=== PATIENT | female | born 1975 | race Caucasian/White ===

== ENCOUNTER 2024-04-28 20:03 | Emergency (ER) | payer BC, SELFPAY ==
[2024-04-28 20:09] VITALS: BP 155/99; PULSE 119; RESP 22; TEMP 36.9; O2SAT 93; BMI 31.8
[2024-04-28 21:23] VITALS: BP 144/96; PULSE 86; RESP 17; TEMP 36.8; O2SAT 97
--- NOTE | 2024-04-28 21:51 | PC.NURSE ---
this rn called poison control at this time. Mike at poison control reports at this time he is going to reach out to his [employer] former supervisor for further information. at this time Mike states pt may experience hypertension.
--- NOTE | 2024-04-28 21:55 | PC.NURSE ---
this rn assumed care of pt, pt a&ox4, respirations even and unlabored. pt reporting around 1am this morning she accidentally took about 60Ml of minoxidil 5% in biotin thinking it was cbd oil. pt now reports she is experiencing nausea, vomiting diarrhea and a headache. pt denies chest pain at this time. at bedside to assess pt.
--- NOTE | 2024-04-28 22:01 | ECG_ITS ---
Test Reason : ABD PAIN Blood Pressure : / mmHG Vent. Rate : 073 BPM Atrial Rate : 073 BPM P-R Int : 152 ms QRS Dur : 078 ms QT Int : 378 ms P-R-T Axes : 067 057 055 degrees QTc Int : 416 ms Normal sinus rhythm with sinus arrhythmia Normal ECG No previous ECGs available Referred By: Lacho Thomposn Electronically Signed By:ANA GRAJEDA
--- NOTE | 2024-04-28 22:03 | ED_ITS ---
HPI - General Adult General Chief complaint: Abdominal Pain Stated complaint: accidental poison use Time Seen by Provider: 04/28/24 21:53 History of Present Illness ED Provider: Donna STEIN narrative: The patient is a 48-year-old female who says that at about 01:45 AM this morning she took 2 dropperfuls of what she thought was CBD oil but which turned out to be minoxidil. She says that she woke up this morning at around 05:30 feeling unwell. She had diarrhea. She has a headache. She would nausea. During the day today she has had a persistent headache associated with nausea, vomiting and diarrhea and mild abdominal discomfort. She generally has felt unwell all day. She has taken Excedrin and acetaminophen without improvement of her headache. Related Data Allergies Allergy/AdvReac Type Severity Reaction Status Date / Time latex AdvReac Unknown Verified 04/28/24 20:14 tioconazole AdvReac Redness of Verified 04/28/24 20:14 [From Monistat 1 Skin (tioconazole)] Review of Systems 2 Review of Systems: Yes all other systems are reviewed and are negative [facility] Social History Social History Smoked in Last 30 Days: No Use of substances other than those prescribed or required for medical reasons: No Advance Directives: No Advance Directives Information Provided: No Do you have a plan to hurt others: No Plan Patient : No Physical Exam ED Vital Signs: Vital Signs - 24 hr 04/28/24 20:09 04/28/24 21:23 04/28/24 22:15 Temperature 98.5 F 98.2 F 98.1 F Pulse Rate 119 H 86 72 Respiratory Rate 22 H 17 17 Blood Pressure 155/99 H 144/96 H 124/85 Pulse Oximetry 93 97 97 Oxygen Delivery Method Room Air Room Air Room Air 04/28/24 23:56 04/29/24 05:48 04/29/24 06:10 Temperature 98.4 F 98.6 F 98.6 F Pulse Rate 75 89 89 Respiratory Rate 18 17 17 Blood Pressure 124/81 123/79 123/79 Pulse Oximetry 100 99 99 Oxygen Delivery Method Room Air Room Air Room Air BMI result Body Mass Index 31.8 Const Other: The patient is awake and alert. She looks mildly unwell but not acutely toxic. HENMT Other: Face is symmetrical. Mucous membranes moist. Pharynx is normal. Eyes Other: Pupils are round, equal, and reactive to light. Extraocular movements are intact. Conjunctivae are clear. Neck Other: The patient can touch her chin to her chest easily. Resp Effort & Inspection: normal respiratory effort Auscultation: clear to auscultation bilaterally Cardio Rate: regular rate Rhythm: regular rhythm Heart sounds: S1 normal heart sound present and S2 normal heart sound present GI Other: Abdomen is soft and nontender Skin Other: Skin is dry and unremarkable Neuro Other: The patient is awake and alert with a normal mental status. She has a somewhat anxious demeanor. Cranial nerves 2-12 are intact. Her neck is supple. She moves her extremities normally and appropriately. She seems neurologically intact. Extrem Other: No peripheral edema. No calf swelling or tenderness. Medications Administered Discontinued Medications Generic Name Dose Route Start Last Admin Trade Name Freq PRN Reason Stop Dose Admin Sodium Chloride 1,000 mls @ 999 mls/hr 04/28/24 22:15 04/29/24 01:30 Ns IV 04/28/24 23:15 Infused .Q1H1M RADU Infusion Ketorolac Tromethamine 10 mg 04/29/24 00:38 04/29/24 01:29 Ketorolac Tromethamine 15 Mg/Ml Vial IVPUSH 04/29/24 00:39 10 mg ONCE ONE Administration Ondansetron HCl 4 mg 04/28/24 22:23 04/28/24 22:37 Ondansetron Hcl 4 Mg/2 Ml Vial IVPUSH 04/28/24 22:24 4 mg ONCE ONE Administration Medical Decision Making Medical Decision Making [facility] Narrative: The patient is a 48-year-old female presents complaining of feeling unwell after accidentally taking minoxidil orally (she thought she was taking CBD oil). The poison Center was consulted. They recommended observation for about 8 hours. The patient was observed and did not develop any hypotension of significance. She was symptomatically treated with ketorolac and ondansetron and IV fluids. She felt much better by the morning and seemed appropriate for discharge. Lab Data 04/28/24 22:10 04/28/24 22:10 Labs: Lab Results 04/28/24 04/28/24 04/29/24 Range/Units 22:10 22:11 01:25 WBC 12.1 H (4.8-10.8) X10*3/uL RBC 4.59 (4.20-5.50) X10*6/uL Hgb 15.4 (12.0-16.0) g/dl Hct 42.7 (37.0-47.0) % MCV 93.0 (80.0-98.0) fL MCH 33.6 H (27.0-33.0) pg MCHC 36.1 H (31.0-35.0) g/dl RDW 12.3 (11.0-16.0) % Plt Count 292 (160-400) X10*3/uL MPV 9.5 (9.4-12.3) fL Immature Gran % (Auto) 0.4 (0.0-0.4) % Neut % (Auto) 65.6 (45-73) % Lymph % (Auto) 25.2 (20-40) % Caroline % (Auto) 7.7 (2-11) % Eos % (Auto) 0.7 (0-4) % Baso % (Auto) 0.4 (0-2) % Lymph # (Auto) 3.0 (1.2-4.9) X10*3/uL Caroline # (Auto) 0.9 (0.1-1.2) X10*3/uL Eos # (Auto) 0.1 (0.0-0.4) X10*3/uL Baso # (Auto) 0.1 (0.0-0.2) X10*3/uL Abs Immat Gran (auto) 0.05 H (0.00-0.03) X10*3/uL Absolute Neuts (auto) 7.9 (2.0-8.3) x10*3/uL Absolute Nucleated RBC 0.000 (0.0-0.012) X10*3/uL Nucleated RBC % (auto) 0.0 (0.0-0.2) /100WBC VBG pH 7.44 H (7.32-7.43) VBG pCO2 34 mmHg VBG pO2 47 mmHg VBG HCO3 24 (22-26) mmol/L VBG O2 Saturation 79.0 % VBG Base Excess 0.7 mmol/L Sodium 139 (135-145) mmol/L Potassium 3.8 (3.3-5.1) mmol/L Chloride 106 (96-108) mmol/L Carbon Dioxide 23 (22-29) mmol/L Anion Gap 14 (12-20) BUN 13 (9-16) mg/dL Creatinine 0.78 (0.5-1.4) mg/dL Estim Creat Clear Calc 76.7 Estimated GFR > 60 Random Glucose 101 (60-115) mg/dL Calcium 9.9 (8.4-10.2) mg/dL Magnesium 2.0 (1.6-2.6) mg/dL Total Bilirubin 0.9 (0.0-1.0) mg/dL Direct Bilirubin 0.2 (0.0-0.5) mg/dL AST 18 (5-31) U/L ALT 23 (0-31) U/L Alkaline Phosphatase 62 (39-117) U/L Total Protein 7.6 (6.5-8.0) g/dL Albumin 4.5 (3.5-5.0) g/dL Lipase 18 (8-78) U/L Beta HCG, Quant < 2 mIU/mL Urine Color Yellow Urine Appearance Clear Urine pH 6.5 (5.0-9.0) Ur Specific [place] 1.010 (1.005-1.025) Urine Protein Negative (Neg-Trace) mg/dL Urine Glucose (UA) Negative (Negative) mg/dL Urine Ketones Negative (Negative) mg/dL Urine Blood Negative (Negative) Urine Nitrite Negative (Negative) Ur Leukocyte Esterase Negative (Negative) Salicylates < 5.0 L (15-30) mg/dL Urine Opiates Screen Not Detected (Not Detect) Ur Buprenorphine Scrn Not Detected (Not Detect) ng/mL Ur Oxycodone Screen Not Detected (Not Detect) ng/mL Urine Methadone Screen Not Detected (Not Detect) ng/mL Urine Fentanyl Screen Not Detected (Not Detect) Acetaminophen < 3 (<30) mcg/mL Ur Barbiturates Screen Not Detected (Not Detect) Ur Phencyclidine Scrn Not Detected (Not Detect) Ur Amphetamines Screen Not Detected (Not Detect) U Benzodiazepines Scrn Not Detected (Not Detect) Urine Cocaine Screen Not Detected (Not Detect) U Marijuana (THC) Screen POSITIVE H (Not Detect) Ethyl Alcohol < 10 mg/dL Discharge Plan Discharge Clinical Impression: Accidental drug ingestion Patient Disposition: Home, Self-Care Additional Instructions: Please rest and take it easy today. Drink lot of fluids. Please contact your regular primary care provider if you have any ongoing concerns. Return to the emergency room if you feel significantly worse. Referrals: Tessa Holland NP [Nurse Practitioner] - (accidental ingestion) Interventions: ED Discharge Assessment Last Done: 04/29/24 06:10 Discharge Date/Time: 04/29/24 06:10 Print Language: Croatian
--- NOTE | 2024-04-28 22:11 | PC.NURSE ---
per Mike in poison control, pt may experience hypotension rather than hypertension. Mike states that pt should have a watch over night until 7am due to possibility of hypotensive episodes within 24 hours.
[2024-04-28] MEDS: 0.9 % Sodium Chloride 1,000 ML 999 ML IV (22:13)
[2024-04-28 22:14] LABS: MANUAL DIFF FLAG NO
[2024-04-28 22:15] VITALS: BP 124/85; PULSE 72; RESP 17; TEMP 36.7; O2SAT 97
[2024-04-28 22:16] LABS: Basophils Absolute Auto 0.1 X10*3/uL (0.0-0.2); Basophils Percent Auto 0.4 % (0-2); Eosinophils Absolute Auto 0.1 X10*3/uL (0.0-0.4); Eosinophils Percent Auto 0.7 % (0-4); Hematocrit 42.7 % (37.0-47.0); Hemoglobin 15.4 g/dl (12.0-16.0); Imm Gran Abs Auto 0.05 X10*3/uL (0.00-0.03); Imm Gran Pct Auto 0.4 % (0.0-0.4); Lymphocytes Percent Auto 25.2 % (20-40); Mean Corpuscular HGB Conc 36.1 g/dl (31.0-35.0); Mean Corpuscular Hemoglobin 33.6 pg (27.0-33.0); Mean Platelet Volume 9.5 fL (9.4-12.3); Monocytes Absolute Auto 0.9 X10*3/uL (0.1-1.2); Monocytes Percent Auto 7.7 % (2-11); Neutrophils Absolute Auto 7.9 x10*3/uL (2.0-8.3); Neutrophils Percent Auto 65.6 % (45-73); Platelet Count 292 X10*3/uL (160-400); Red Blood Count 4.59 X10*6/uL (4.20-5.50); Red Cell Distribution Width 12.3 % (11.0-16.0); White Blood Count 12.1 X10*3/uL (4.8-10.8)
[2024-04-28 22:18] LABS: VBG Base Excess 0.7 mmol/L; VBG HCO3 24 mmol/L (22-26); VBG pCO2 34 mmHg; VBG pH 7.44 (7.32-7.43); VBG pO2 47 mmHg
[2024-04-28 22:21] LABS: Venous Blood Gas Refer to POC result
[2024-04-28 22:33] LABS: Ethanol < 10 mg/dL
[2024-04-28 22:34] LABS: Acetaminophen LAB < 3 mcg/mL (<30); Salicylate < 5.0 mg/dL (15-30)
[2024-04-28 22:35] LABS: Alanine Aminotransferase 23 U/L (0-31); Albumin Level 4.5 g/dL (3.5-5.0); Alkaline Phosphatase 62 U/L (39-117); Anion Gap 14 (12-20); Aspartate Amino Transferase 18 U/L (5-31); Bilirubin Direct 0.2 mg/dL (0.0-0.5); Bilirubin Total 0.9 mg/dL (0.0-1.0); Blood Urea Nitrogen 13 mg/dL (9-16); Calcium 9.9 mg/dL (8.4-10.2); Carbon Dioxide 23 mmol/L (22-29); Chloride 106 mmol/L (96-108); Creatinine Clr Calc Pharmacy 76.7; Estimated Glomerular Filt Rate > 60; Glucose Random 101 mg/dL (60-115); Lipase 18 U/L (8-78); Potassium 3.8 mmol/L (3.3-5.1); Sodium 139 mmol/L (135-145); Total Protein 7.6 g/dL (6.5-8.0)
[2024-04-28] MEDS: ondansetron HCL 4 MG/2 ML VIAL IVPUSH (22:37)
[2024-04-28 22:42] LABS: HCG Quantitative < 2 mIU/mL
[2024-04-28 23:56] VITALS: BP 124/81; PULSE 75; RESP 18; TEMP 36.9; O2SAT 100
[2024-04-29] MEDS: Ketorolac Tromethamine 15 MG/ML VIAL 10 MG IVPUSH (01:29)
--- NOTE | 2024-04-29 01:30 | PC.NURSE ---
Pts NS complete when this RN entered pts room. Finish time unknown. Pt medicated for pain 7/10 headache per dec. Prt ca&ox4, no signs of distress. Pts family at bedside.
[2024-04-29 01:31] LABS: Appearance Urine Clear; Color Urine Yellow; Glucose Urine UA Negative (Negative); Leukocyte Esterase Urine Negative (Negative); Nitrite Urine Negative (Negative); PH 6.5 (5.0-9.0); Urine Blood Negative (Negative); Urine Ketones Negative (Negative); Urine Protein Negative (Neg-Trace)
[2024-04-29 01:46] LABS: Amphetamine Screen Urine Not Detected (Not Detect); Barbiturates, Urine Not Detected (Not Detect); Benzodiazepines Screen Urine Not Detected (Not Detect); Buprenorphine Scr Not Detected (Not Detect); Cannabinoid Screen Urine POSITIVE (Not Detect); Cocaine Screen Urine Not Detected (Not Detect); Fentanyl, urine Not Detected (Not Detect); Methadone Screen, Urine Not Detected (Not Detect); Opiate Screen Urine Not Detected (Not Detect); Oxycodone Screen Urine Not Detected (Not Detect); Phencyclidine Screen Urine Not Detected (Not Detect)
--- NOTE | 2024-04-29 05:47 | PC.NURSE ---
at this time pt reports she is feeling better, vss. aware.
[2024-04-29 05:48] VITALS: BP 123/79; PULSE 89; RESP 17; TEMP 37; O2SAT 99
[2024-04-29 06:10] VITALS: BP 123/79; PULSE 89; RESP 17; TEMP 37; O2SAT 99
== END 2024-04-29 06:10 | disposition home or self-care (01) ==
PROVIDERS: Emergency Provider Emergency Medicine
DX: R11.0 Nausea (principal); T46.7X1A Poisoning by peripheral vasodilators, accidental (unintentional), initial encounter; R19.7 Diarrhea, unspecified; R51.9 Headache, unspecified; R10.9 Unspecified abdominal pain; Y92.003 Bedroom of unspecified non-institutional (private) residence as the place of occurrence of the external cause
CPT/HCPCS: 36415; 80048; 80076; 80143; 80179; 80307; 81003; 82803; 83690; 83735; 84702; 85025; 93005; 96361; 96374; 96375; 99284; 99285; J1885; J2405

== ENCOUNTER → 2024-04-28 22:01 | Outpatient (BNV) | payer BC, SELFPAY | PROVIDERS: Emergency Provider Emergency Medicine; Visit Provider Internal Medicine | DX: I49.9 Cardiac arrhythmia, unspecified (principal) | CPT/HCPCS: 93010 ==